=== PATIENT | female | born 1940 | race Caucasian/White ===

== ENCOUNTER 2024-12-16 08:47 | Emergency (ER) | payer MEDICARE ==
[~2024-12-16] VITALS: Ht 157.5 cm; Wt 71.0 kg
[2024-12-16] VITALS (14 sets, daily range): BP systolic 94–117; BP diastolic 37–84
[2024-12-16] MEDS ORDERED: ONDANSETRON HCl 4 MG/2 ML SDV IV ONE (09:05)
[2024-12-16] MEDS ORDERED: SODIUM CHLORIDE 0.9% 1,000 ML IV ONE ×2 (09:05→09:35)
[2024-12-16] MEDS ORDERED: MORPHINE SULFATE 4 MG/ML VIAL IV ONE (09:05)
[2024-12-16] MEDS ORDERED: cefTRIAXone SODIUM 2 GM in SODIUM CHLORIDE 0.9% 100 ML IV ONE (09:05)
[2024-12-16 09:15] LABS: BASO% 0.1 % (0-3); EOS% 0.3 % (0-8); HEMOGLOBIN 10.8 g/dl (12.0-16.0); IMMATURE GRANULOCYTES 0.8 % (0.0-5.0); LYMPH% 1.8 % (15-41); MEAN CELL VOLUME 94.2 fL CALC (80.0-100.0); MEAN CORPUSCULAR HGB 29.9 pG CALC (26.0-32.0); MEAN CORPUSCULAR HGB CONC 31.8 g/dL CAL (32.0-36.0); MONO% 3.3 % (2-13); NEUT# 21.46 thou/uL (2.00-7.15); NEUT% 93.7 % (42-76); RED BLOOD COUNT 3.61 mill/uL (4.20-5.60); RED CELL DISTRI WIDTH 15.5 % (11.5-15.5)
[2024-12-16] MEDS ORDERED: ACETAMINOPHEN 1,000 MG/100 ML VIAL IV ONE (09:15)
[2024-12-16 09:20] LABS: URINE BILIRUBIN - DIPSTICK Negative (NEGATIVE); URINE BLOOD DIPSTICK Negative (NEGATIVE); URINE GLUCOSE - DIPSTICK Negative (NEGATIVE); URINE KETONE Negative (NEGATIVE); URINE LEUK ESTERASE Negative (NEGATIVE); URINE NITRITE - DIPSTICK Negative (Negative); URINE PH 5.5 (4.5-8.0); URINE PROTEIN - DIPSTICK Negative (NEG-TRACE); URINE UROBILINOGEN - DIPSTICK 0.2 E.U./dL (0.2)
[2024-12-16 09:27] LABS: ALBUMIN 3.4 g/dL (3.2-5.0); BILIRUBIN, TOTAL 0.4 mg/dL (0.02-1.3); CREATININE 0.8 mg/dL (0.5-1.0); MAGNESIUM 1.8 mg/dL (1.6-2.3); POTASSIUM 4.2 mmol/l (3.5-5.1); TOTAL PROTEIN 6.3 g/dL (6.3-8.2)
[2024-12-16 09:30] LABS: URINE COLOR Yellow
[2024-12-16] MEDS ORDERED: SODIUM CHLORIDE 0.9% 200 ML IV ONE (09:35)
[2024-12-16] MEDS ORDERED: VANCOMYCIN HCL 1 GM in SODIUM CHLORIDE 0.9% 500 ML IV ONE (09:40)
[2024-12-16] MEDS ORDERED: ENOXAPARIN SODIUM 100 MG/ML SYR SC ONE (12:10)
[2024-12-16] MEDS ORDERED: ASPIRIN 81 MG/TAB PO ONE (12:10)
== END 2024-12-16 13:25 ==
LOC: ED 08:47
PROVIDERS: Family Medicine
PROC: 0T9B70Z Drainage of Bladder with Drainage Device, Via Natural or Artificial Opening (ICD-10-PCS; principal; 2024-12-16)
DX: A41.9 Sepsis, unspecified organism (principal); I21.4 Non-ST elevation (NSTEMI) myocardial infarction; R65.20 Severe sepsis without septic shock; I25.10 Atherosclerotic heart disease of native coronary artery without angina pectoris; I25.2 Old myocardial infarction; Z86.73 Personal history of transient ischemic attack (TIA), and cerebral infarction without residual deficits; I67.1 Cerebral aneurysm, nonruptured; I10 Essential (primary) hypertension; N39.0 Urinary tract infection, site not specified; Z20.822 Contact with and (suspected) exposure to COVID-19
CPT/HCPCS: J0131; J0696; J1650; J2405; J3370; Q9967